=== PATIENT | male | born 1960 | race Caucasian/White ===

== ENCOUNTER 2016-11-23 07:11 | Day surgery (SDC) | payer OTHER ==
[~2016-11-23] VITALS: Ht 188 cm; Wt 95.0 kg
[2016-11-23] VITALS (7 sets, daily range): BP systolic 118–157; BP diastolic 63–94; PULSE 58–79; RESP 11–22; Ht 188 cm; Wt 95.0 kg
--- NOTE | 2016-11-23 07:21 | HPN ---
Date/Time of Note Date/Time of Note DATE: 11/23/16 TIME: 07:21 Interval H&P Admission Note Pt. seen H&P reviewed: No system changes NICCI GUERRA MD Nov 23, 2016 07:21
[2016-11-23] MEDS ORDERED: BUPIVACAINE 0.75% (MPF) 10 ML INJ ONE (08:17)
[2016-11-23] MEDS ORDERED: TIMOLOL 0.5% 5 ML OPH ONE (08:18)
[2016-11-23] MEDS ORDERED: EPINEPHrine 1 MG INJ ONE (08:18)
[2016-11-23] MEDS ORDERED: LIDOCAINE 1% (MPF) 10 ML INJ ONE (08:18)
[2016-11-23] MEDS ORDERED: SODIUM BICARBONATE (IV ADD) 50 ML ONE (08:18)
[2016-11-23] MEDS ORDERED: LEXI700 PO (08:26)
[2016-11-23] MEDS ORDERED: ABAC1TAB12 PO (08:26)
[2016-11-23] MEDS ORDERED: ONDANSETRON 4 MG INJ IV PRN (08:30)
[2016-11-23] MEDS ORDERED: NEPAFENAC 0.1% 3 ML OPH OPER SCH (08:30)
[2016-11-23] MEDS ORDERED: FENTAnyl 50 MCG/ML VIAL IV PRN (08:30)
[2016-11-23] MEDS ORDERED: CYCLOPENTOLATE 2% 2 ML OPH OPER SCH (08:30)
[2016-11-23] MEDS ORDERED: MOXIFLOXACIN 0.5% 3 ML OPH OPER SCH (08:30)
[2016-11-23] MEDS ORDERED: PHENYLephrine 10% 5 ML OPH OPER SCH (08:30)
[2016-11-23] MEDS ORDERED: DIPHENHYDRAMINE 50 MG INJ IV PRN (08:30)
[2016-11-23] MEDS ORDERED: MEPERIDINE 25 MG INJ IV PRN (08:30)
[2016-11-23] MEDS ORDERED: OXYCODONE/ACETAMINOPHEN (5/325) TAB PO PRN ×2 (08:30)
[2016-11-23] MEDS ORDERED: PROCHLORPERAZINE 10 MG INJ IV PRN (08:30)
[2016-11-23] MEDS ORDERED: LIDOCAINE 2% (SDV) 5 ML INJ ONE (08:47)
[2016-11-23] MEDS ORDERED: LIDOCAINE 1% (MPF) 10 ML INJ INJ ONE (09:00)
[2016-11-23] MEDS ORDERED: FENTAnyl 50 MCG/ML VIAL ONE (09:05)
[2016-11-23] MEDS ORDERED: MIDAZOLAM 1 MG/ML 2 ML INJ ONE (09:05)
[2016-11-23] MEDS ORDERED: ONDANSETRON 4 MG INJ ONE (09:18)
[2016-11-23] MEDS ORDERED: METOCLOPRAMIDE 10 MG INJ ONE (09:33)
[2016-11-23] MEDS ORDERED: TIMOLOL 0.5% 5 ML OPH LEFT EYE ONE (09:37)
--- NOTE | 2016-11-23 11:03 | OPR ---
DATE OF OPERATION: 11/23/2016 PREOPERATIVE DIAGNOSIS: Nuclear sclerotic cataract, left eye. POSTOPERATIVE DIAGNOSIS: Nuclear sclerotic cataract, left eye. PLANNED PROCEDURE: Phacoemulsification of cataract with implantation of posterior chamber lens. SURGEON: Kimberley Fay MD DESCRIPTION OF PROCEDURE: Following standard preparation and draping of the patient, a speculum was placed for immobilization of the lids. Three mL of retrobulbar anesthetic had been placed 5 minute s prior to starting the procedure and the patient appeared to be free of any feeling or discomfort. An access port was made at the 4:30 o'clock anterior limbal region, following which a small amount of nonpreserved anesthetic was placed in the eye following which Viscoat was placed so as to deepen the anterior chamber. A 3.2 mm anterior limbal incision was now made in the superior temporal quadr ant. A cystitome placed in the eye. Attempt to do a capsulorrhexis appeared to be extremely diffic ult in that the rock-hard lens appeared to be attached to the capsule of the eye so that any movemen t of the capsule moved the entire lens. As such, a "can strategy lead" type anterior capsulorrhexis was pe rformed. The major portion of the lens cortex and nucleus was now dislocated from the capsular bag using hydrodissection. The hydrodissection needle was used to gently move the lens so as to disloca te it from the capsular bag. Controlling tumbling of the lens with a two-handed technique, the phac oemulsification instrument was now placed in the eye and controlling tumbling of the lens, the major portion of the lens nucleus was removed from the eye. Approximately 3/4 of the nucleus had been re moved when the lens slightly rotated and a "sharp edge" of the hard lens actually tore the posterior capsule following which the remainder of the lens slowly drifted into the posterior chamber. Since there appeared to be adequate posterior capsule remaining, I elected not to chafe the lens any furt her, so as to maintain the posterior capsule for future planned placement of a posterior chamber breann s. The eye was now closed with a single interrupted 10-0 Vicryl suture and saline solution was placed i nto the eye to make the eye normotensive. The plan is to refer the patient to a retinal seo consultant VAISHNAVI for removal of the lens from the vitreous cavity. The eye was flushed with 5% Betadine solutio n, following which timolol and Vigamox were placed in the eye. A light pressure dressing was placed . The patient returned to the recovery room in satisfactory condition. Dictated By: KIMBERLEY MOLINA/JAH Conf#: [id number] DID#: [id number]
== END 2016-11-23 10:55 | disposition home or self-care (01) ==
LOC: SDS 07:11
PROVIDERS: ATTEND Ophthalmology
DX: H25.12 Age-related nuclear cataract, left eye (principal); I12.9 Hypertensive chronic kidney disease with stage 1 through stage 4 chronic kidney disease, or unspecified chronic kidney disease; N18.9 Chronic kidney disease, unspecified; E66.9 Obesity, unspecified; Z68.26 Body mass index [BMI] 26.0-26.9, adult
CPT/HCPCS: 66984; J0171; J2250; J2405; J2765; J3010; Z7512; Z7610